=== PATIENT | male | born 1960 | race Caucasian/White ===

== ENCOUNTER 2024-09-30 05:56 | Inpatient (IN) | payer MEDICARE, MEDICAID ==
[2024-09-28 14:59] LABS: Urine Bacteria None Seen /hpf (None Seen)
[2024-09-28 15:05] LABS: Basophils # (auto) 0.1 10 ^3/uL (0-0.2); Basophils % (auto) 0.6 % (0.0-2.0); Eosinophils # (auto) 0.1 10 ^3/uL (0-0.8); Hematocrit 46.4 % (41.0-53.0); Hemoglobin 15.7 g/dL (13.5-17.5); Lymphocytes % (auto) 22.5 % (10.0-50.0); Mean Corpuscular Hemoglobin 29.5 pg (28.0-32.0); Mean Corpuscular Hgb Conc. 33.8 g/dL (32.0-36.0); Mean Corpuscular Volume 87.3 fL (80.0-100.0); Monocytes # (auto) 0.7 10 ^3/uL (0-1.3); Monocytes % (auto) 8.1 % (0.0-12.0); Neutrophils % (auto) 67.8 % (37.0-80.0); Nucleated Red Blood Cells % 0.1 %; Platelet Count (auto) 229 10^3/uL (140-450); Red Blood Cells 5.31 10^6/uL (4.5-5.90); Red Cell Distribution Width 13.1 % (11.8-14.3); White Blood Cell 8.8 10^3/uL (4.4-10.8)
[2024-09-28 15:32] LABS: INR 1.04 (0.9-1.15); Partial Thromboplastin Time 24.7 SEC (24.5-34.5)
[2024-09-28 15:40] LABS: Urine Blood Negative /uL (Negative); Urine Clarity Clear (Clear); Urine Color Light-Yellow (Yellow); Urine Protein, UAD Negative (Negative); Urine Specific Gravity 1.009 (1.001-1.035); Urine Urobilinogen Normal (Negative); Urine WBC <1 /hpf (0 - 3)
[2024-09-28 16:37] LABS: Alanine Aminotransferase 42 U/L (7-40); Albumin 4.7 g/dL (3.2-4.8); Alkaline Phosphatase 87 U/L (46-116); Anion Gap 7 (5-15); Blood Urea Nitrogen 11 mg/dL (9-23); Calcium 9.8 mg/dL (8.7-10.4); Carbon Dioxide 24 mmol/L (20-31); Chloride 107 mmol/L (98-107); Glucose 83 mg/dL (74-106); Potassium 4.2 mmol/L (3.5-5.1); Sodium 138 mmol/L (136-145)
[2024-09-28 16:38] LABS: Aspartate Aminotransferase 18 U/L (13-40); Bilirubin, Total 0.3 mg/dL (0.2-1.0); Total Protein 7.1 g/dL (5.7-8.2)
[2024-09-30] VITALS (14 sets, daily range): BP systolic 111–153; BP diastolic 62–90; PULSE 71–97; RESP 16–19; TEMP 97.8–98; O2SAT 88–98
[~2024-09-30] VITALS: Ht 170.2 cm; Wt 90.1 kg
[~2024-09-30 05:56] MED LIST: ASPI-543 PO; ATOR10TA PO; GEMF600T PO; LISI-275 PO
[2024-09-30] MEDS: ceFAZolin 2 GM/D5W100ml 100 ML IV ONE (06:22)
[2024-09-30] MEDS ORDERED: PHENYLEPHRINE HCL 10 MG/ML VL ONE (06:53)
[2024-09-30] MEDS ORDERED: EPINEPHrine HCL 1 MG/1 ML AMP ONE (06:53)
[2024-09-30] MEDS ORDERED: fentaNYL CITRATE 100 MCG/2 ML VL ONE (06:56)
[2024-09-30] MEDS ORDERED: MORPHINE SULF PF 5 MG/10 ML VIAL ONE ×2 (06:56→07:05)
[2024-09-30] MEDS: VANCOMYCIN HCL 1000 MG VL ONE (06:59)
[2024-09-30] MEDS: TETRACAINE 1% INJ 2 ML VIAL IJ ONE ×2 (07:00→07:02)
[2024-09-30] MEDS: ROPIVACAINE 0.5% (5MG/ML) 20ML AMPULE IJ ONE (07:02)
[2024-09-30] MEDS: TRANEXAMIC ACID 20 ML ONE (07:03)
[2024-09-30] MEDS: EPINEPHrine HCL 1 MG/1 ML AMP ONE (07:04)
[2024-09-30] MEDS: BUPIVACAINE 0.25% INJ 50ML VIAL ONE (07:04)
[2024-09-30] MEDS ORDERED: KETOROLAC TROMETH 30 MG/ML 1ML VIAL ONE (07:05)
[2024-09-30] MEDS ORDERED: KETAMINE 50mg/ML 1ml syringe ONE (08:00)
[2024-09-30] MEDS: CEFEPIME 1GM/ 50ML 50 ML IV ONE (08:07)
[2024-09-30] MEDS ORDERED: ONDANSETRON HCL 4 MG/2 ML VIAL IV PRN (09:30)
[2024-09-30] MEDS ORDERED: MORPHINE SULFATE 4 MG/ML SYR/VIAL IV PRN ×2 (09:45)
[2024-09-30] MEDS ORDERED: NALOXONE HCL 0.4 MG/ML VIAL IV PRN (09:45)
[2024-09-30] MEDS ORDERED: ePHEDrine SULFATE 50 MG/ML AMP IV PRN (09:45)
[2024-09-30] MEDS ORDERED: hydrALAZINE HCL 20 MG/ML VL IV PRN (09:45)
[2024-09-30] MEDS ORDERED: MIDAZOLAM HCL 2MG/2ML 2ml VIAL (1mg/ml) IV PRN (09:45)
[2024-09-30] MEDS: PREGABALIN 25 MG CAP PO SCH (10:00)
[2024-09-30] MEDS: GEMFIBROZIL 600 MG TAB PO SCH (10:00)
[2024-09-30] MEDS: LISINOPRIL 5 MG TAB PO SCH (10:00)
[2024-09-30] MEDS ORDERED: oxyCODONE HCL 5MG TAB PO PRN ×2 (11:30)
[2024-09-30] MEDS: SODIUM CHLORIDE 0.9% 1,000 ML IV SCH (11:30)
[2024-09-30] MEDS: ACETAMINOPHEN 325 MG TAB PO SCH (12:00)
[2024-09-30] MEDS: KETOROLAC TROMETH 30 MG/ML 1ML VIAL IV SCH (14:05)
[2024-09-30] MEDS: ceFAZolin 2 GM/D5W50ml 50 ML IV SCH (18:02)
[2024-10-01] VITALS (9 sets, daily range): BP systolic 114–145; BP diastolic 65–89; PULSE 67–85; RESP 17–20; TEMP 36.9; O2SAT 89–97
[2024-10-01] MEDS: ceFAZolin 2 GM/D5W50ml 50 ML IV SCH (02:11)
[2024-10-01 07:37] LABS: Anion Gap 7 (5-15); Carbon Dioxide 27 mmol/L (20-31); Chloride 100 mmol/L (98-107); Potassium 4.4 mmol/L (3.5-5.1); Sodium 134 mmol/L (136-145)
[2024-10-01 07:38] LABS: Basophils # (auto) 0 10 ^3/uL (0-0.2); Basophils % (auto) 0.1 % (0.0-2.0); Eosinophils # (auto) 0 10 ^3/uL (0-0.8); Eosinophils % (auto) 0.2 % (0.0-7.0); Hematocrit 38.2 % (41.0-53.0); Hemoglobin 12.7 g/dL (13.5-17.5); Lymphocytes # (auto) 1.2 10 ^3/uL (0.4-5.4); Lymphocytes % (auto) 10.3 % (10.0-50.0); Mean Corpuscular Hgb Conc. 33.3 g/dL (32.0-36.0); Mean Corpuscular Volume 86.9 fL (80.0-100.0); Monocytes # (auto) 0.9 10 ^3/uL (0-1.3); Monocytes % (auto) 7.6 % (0.0-12.0); Neutrophils # (auto) 9.2 10 ^3/uL (1.6-8.6); Neutrophils % (auto) 81.8 % (37.0-80.0); Platelet Count (auto) 178 10^3/uL (140-450); Red Blood Cells 4.39 10^6/uL (4.5-5.90); Red Cell Distribution Width 13.2 % (11.8-14.3); White Blood Cell 11.2 10^3/uL (4.4-10.8)
[2024-10-01 07:43] LABS: BUN/Creatinine Ratio 18.2 (10.0-20.0); Blood Urea Nitrogen 16 mg/dL (9-23); Glucose 129 mg/dL (74-106)
[2024-10-01] MEDS: APIXABAN 2.5 MG TAB PO SCH (11:19)
[2024-10-01] MEDS ORDERED: ATORVASTATIN 20 MG TAB PO SCH (22:00)
== END 2024-10-01 15:15 | disposition home or self-care (01) | DRG 470 ==
LOC: SUR 05:56 → OVERFLOW 09:25 → WEST WING 14:28
PROVIDERS: ADMIT Orthopaedic Surgery; ATTEND Orthopaedic Surgery
PROC: 0SRB0JZ Replacement of Left Hip Joint with Synthetic Substitute, Open Approach (ICD-10-PCS; principal; 2024-09-30 07:41)
DX: M16.12 Unilateral primary osteoarthritis, left hip (principal); D62 Acute posthemorrhagic anemia
CPT/HCPCS: 36415; 72170; 80048; 80053; 81001; 85025; 85610; 85730; 86850; 86900; 86901; 97110; 97116; 97163; 97530; G0378; J0171; J1885; J3490